=== PATIENT | male | born 2005 | race Caucasian/White ===

== ENCOUNTER 2024-05-04 09:51 | Emergency (ER) | payer BC, SELFPAY ==
--- NOTE | ~2024-05-04 | CT_ITS ---
EXAMINATION: CT SOFT TISSUE NECK WITH CONTRAST CLINICAL INFORMATION: Right-sided throat pain. Enlargement. COMPARISON: None available. TECHNIQUE: Following the intravenous administration of 60 mL of Omnipaque 350 intravenous contrast, helical imaging was performed in the axial plane with generation of coronal and sagittal reformatted images. No reported immediate complications. This CT examination was performed using dose optimization techniques as appropriate, variously including the following: *Automated exposure control *Adjustment of mA and/or kV according to patient size (this includes techniques or standardized protocols for targeted exams where dose is matched to indication/reason for exam; i.e. extremities or head) *Use of iterative reconstruction technique DLP: 867 mg centimeter FINDINGS: There is soft tissue fullness involving the right palatine tonsil with a lateral peripheral 2.4 cm hypodensity. There is edema pattern in the right side of the retropharynx. There is effacement of the right parapharyngeal compartment. There is narrowing of the oropharynx airway without obstruction. Prominent lingual tonsils protruding into the vallecula without seated secretions. No gross calcifications. Skull base, nasopharynx and larynx demonstrated no gross mass or fluid collections. Envelope Sealer spaces and carotid spaces demonstrated no gross masses or peripheral enhancing fluid collections. The salivary glands demonstrated no complications or abnormal enhancement. The vessels are patent. There are prominent lymph nodes in the submandibular and carotid compartments. The thyroid gland demonstrates normal enhancement and size without dominant nodules. No acute airspace disease in the included lungs. The mediastinal structures demonstrated no gross abnormality. Focal calcification in the anterior intervertebral disc C4-5. Tympanic cavities and mastoid cells are aerated. Small retention cysts versus polyp in the left maxillary sinus. There is an old traumatic deformity of the right lamina papyracea. 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 CT/CT soft tissue neck w IV con IMPRESSION: Phlegmon versus abscess, right peritonsillar with associated prominent/reactive lymph nodes. Edema pattern, right retropharynx. Electronically signed by: Ananda Pimentel MD 05/04/2024 02:14 PM [facility]
[2024-05-04 10:15] VITALS: BP 133/77; PULSE 78; RESP 18; TEMP 36.9; O2SAT 99; BMI 27.6
--- NOTE | 2024-05-04 10:18 | ED.GENADULT ---
HPI - General Adult General Chief complaint: General Medical Stated complaint: R side neck pain into ear Time Seen by Provider: 05/04/24 11:27 Source: patient Mode of arrival: ambulatory Limitations: no limitations History of Present Illness ED Provider: FEMI Kirby HPI narrative: 18-year-old male presents with sore throat, difficulty swallowing, changes in voice, feeling fatigued and unwell. This has been going on for the past 3-4 days. He was seen at urgent care he reports that they told him he had a head cold. Denies any recent sick contacts. Denies fevers, chills, chest pain, shortness of breath, nausea, vomiting, abdominal pain, headache, vision changes. Related Data Previous Rx's ?Medication ?Instructions ?Recorded clindamycin HCl 300 mg capsule 300 mg PO TID 10 days #30 caps 05/04/24 prednisone 50 mg tablet 50 mg PO DAILY 5 days #5 tabs 05/04/24 Allergies Allergy/AdvReac Type Severity Reaction Status Date / Time amoxicillin [AMOXICILLIN] Allergy Unknown UNKNOWN, Verified 05/04/24 10:22 rash Review of Systems Review of Systems: Yes all other systems are reviewed and are negative [facility] Past Medical History Attestation statement: The following information was validated with the patient. Source: old records reviewed and nursing notes reviewed Social History Social History Advance Directives: No Advance Directives Information Provided: Yes Physical Exam ED Vital Signs: Vital Signs - 24 hr 05/04/24 10:15 05/04/24 13:15 Temperature 98.5 F 98.4 F Pulse Rate 78 98 Respiratory Rate 18 18 Blood Pressure 133/77 151/76 H Pulse Oximetry 99 98 Oxygen Delivery Method Room Air Room Air BMI result Body Mass Index 27.6 vss Appearance: Alert.? Oriented X3.? No acute distress.? Head: Normocephalic, atraumatic, no step-offs or deformities Eyes: Pupils equal, round and reactive to light.? Neck: Normal inspection.? Neck supple.? CVS: Normal heart rate and rhythm.? Pulses normal.? Respiratory: No respiratory distress.? Breath sounds normal.? Abdomen: Soft and nontender.? Skin: Skin warm and dry.? Normal skin color.? Normal skin turgor.? Extremities: No lower extremity edema.? No calf ttp. 5/5 strength to bilateral upper and lower extremities Neuro: Oriented X 3.? No motor deficit.? No sensory deficit. CN 2-12 intact Course Course Course Narrative: Patient complains of sore throat, and significant tonsillar swelling pressing on the uvula over past 4 days Labs ordered This is rapid medical exam and triage pending full evaluation and disposition from ER provider Reevaluation(s) Reevaluation #1: CBC with elevated white blood cell count and neutrophil predominance. Concerning for possible infection. Chemistry with no acute findings eating intervention. Lactic acid is negative. CRP is elevated 5.39 concerning for acute process. Patient's COVID, Monospot and strep test negative. Patient received 10 mg of IV Decadron as well as clindamycin IV. I did look at the CT scan I suspect that there is a right-sided flag, versus peritonsillar abscess. Time: 14:00 Reevaluation #2: CT soft tissue neck with IV contrast with phlegmon versus abscess right peritonsillar with associated prominent give reactive lymph nodes edema pattern right retropharynx. Patient will be discharged with clindamycin 300 mg t.i.d. as well as prednisone 50 mg x 5 days. Will have him follow-up with ears Nose and Throat. Educated him to return with any new or worsening symptoms. I did educate him on potential for C diff with clindamycin. Him and father understand and verbalized understanding of plan. Educated patient on diagnosis and treatment plan, answered all question, patient verbalizes understanding. At this time patient will be discharged home, advised to return with new or worsening symptoms. Educated on worrisome signs and symptoms and when to return. At this time I feel comfortable discharge home. Time: 14:31 Medications Administered Discontinued Medications Generic Name Dose Route Start Last Admin Trade Name Freq PRN Reason Stop Dose Admin Dexamethasone Sodium Phosphate 10 mg 05/04/24 11:33 05/04/24 13:31 Dexamethasone Sod Phosphate 10 Mg/Ml Vial IVPUSH 05/04/24 11:34 10 mg ONCE ONE Administration Clindamycin Phosphate 600 mg in 50 mls @ 100 mls/hr 05/04/24 11:33 05/04/24 14:05 Cleocin IV 05/04/24 12:02 Infused ONCE ONE Infusion Iohexol 100 ml 05/04/24 13:32 05/04/24 13:33 Iohexol 350 Mg/Ml 100 Ml Infus..Btl IV 05/04/24 13:33 60 ml ONCE ONE Administration Medical Decision Making Medical Decision Making [facility] Narrative: 1136 18-year-old male presents with 3-4 days of sore throat, changes in voice, difficulty swallowing. Was seen at urgent Care and told he had a head cold. Physical exam revealing hypertrophy to the right tonsil without exudate. It appears as though the uvula is deviated to the left. Patient noted to have a muffled voice. Concerns for peritonsillar versus retropharyngeal abscess. No signs of airway compromise at this time. Unlikely epiglottitis. Will rule out strep throat as well as mononucleosis. Plan labs, imaging. Differential Diagnosis Differential Diagnoses: The differential diagnosis associated with the presentation includes (Concerns for peritonsillar versus retropharyngeal abscess. No signs of airway compromise at this time. Unlikely epiglottitis. Will rule out strep throat as well as mononucleosis.) Admission/Observation Consideration of admission/observation: Escalation of care including admission/observation considered Lab Data [facility] Lab Attestation statement: I reviewed the patient's lab results. 05/04/24 10:45 05/04/24 10:45 Labs: Lab Results 05/04/24 05/04/24 Range/Units 10:45 11:47 WBC 13.1 H (4.8-10.8) X10*3/uL RBC 5.37 (4.60-5.80) X10*6/uL Hgb 15.8 (14.0-18.0) g/dl Hct 46.0 (42.0-52.0) % MCV 85.7 (80.0-98.0) fL MCH 29.4 (27.0-33.0) pg MCHC 34.3 (31.0-36.0) g/dl RDW 12.6 (11.0-16.0) % Plt Count 308 (160-400) X10*3/uL MPV 9.1 L (9.4-12.4) fL Immature Gran % (Auto) 0.4 (0.0-0.4) % Neut % (Auto) 76.5 H (45-73) % Lymph % (Auto) 13.5 L (20-40) % Irwin % (Auto) 8.9 (2-11) % Eos % (Auto) 0.4 (0-4) % Baso % (Auto) 0.3 (0-2) % Lymph # (Auto) 1.8 (1.2-4.9) X10*3/uL Irwin # (Auto) 1.2 (0.1-1.2) X10*3/uL Eos # (Auto) 0.1 (0.0-0.4) X10*3/uL Baso # (Auto) 0.0 (0.0-0.2) X10*3/uL Abs Immat Gran (auto) 0.05 H (0.00-0.03) X10*3/uL Absolute Neuts (auto) 10.0 H (2.0-8.3) x10*3/uL Absolute Nucleated RBC 0.000 (0.0-0.012) X10*3/uL Nucleated RBC % (auto) 0.0 (0.0-0.2) /100WBC ESR 2 (0-15) MM/HR Sodium 139 (135-145) mmol/L Potassium 4.2 (3.3-5.1) mmol/L Chloride 105 (96-108) mmol/L Carbon Dioxide 28 (22-29) mmol/L Anion Gap 10 L (12-20) BUN 11 (9-16) mg/dL Creatinine 0.98 (0.5-1.4) mg/dL Estim Creat Clear Calc 140.9 Estimated GFR > 60 Random Glucose 89 (60-115) mg/dL Lactic Acid 0.8 (0.5-2.0) mmol/L Calcium 10.1 (8.4-10.2) mg/dL C-Reactive Protein 5.39 H (< or = 0.50) mg/dL COVID-19 (TUSHAR) Negative (Negative) COVID-19 Clin Com See Note Monoscreen Negative (Negative) S. pyogenes GrpA SAMEERA Negative (Negative) Independent Interpretation I performed an independent interpretation of an: CT Scan Radiology Impression Discussion of test interpretation with radiology: I have reviewed the radiologist's reading. Prescription Management I considered prescription management with: Antibiotic Critical Care Time Critical Care Time Critical Care Time: No Discharge Plan Discharge Clinical Impression: Abscess, peritonsillar Patient Disposition: Home, Self-Care Instructions: Peritonsillar Abscess (DC), Abscess Incision and Drainage (DC) Additional Instructions: Take your medications as prescribed. If you were prescribed antibiotics today, it is important that you take your medication to their entirety, do not skip any doses, do not finish them early. Follow-up with your primary care provider this week. Return to the emergency department with new or worsening symptoms. Such as fevers, chills, chest pain, shortness of breath, nausea, vomiting, dizziness, headache, vision changes, lethargy In case of emergency call 911 FINDINGS: There is soft tissue fullness involving the right palatine tonsil with a lateral peripheral 2.4 cm hypodensity. There is edema pattern in the right side of the retropharynx. There is effacement of the right parapharyngeal compartment. There is narrowing of the oropharynx airway without obstruction. Prominent lingual tonsils protruding into the vallecula without seated secretions. No gross calcifications. Skull base, nasopharynx and larynx demonstrated no gross mass or fluid collections. Freight Car [employer] spaces and carotid spaces demonstrated no gross masses or peripheral enhancing fluid collections. The salivary glands demonstrated no complications or abnormal enhancement. The vessels are patent. There are prominent lymph nodes in the submandibular and carotid compartments. The thyroid gland demonstrates normal enhancement and size without dominant nodules. No acute airspace disease in the included lungs. The mediastinal structures demonstrated no gross abnormality. Focal calcification in the anterior intervertebral disc C4-5. Tympanic cavities and mastoid cells are aerated. Small retention cysts versus polyp in the left maxillary sinus. There is an old traumatic deformity of the right lamina papyracea. 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 CT/CT soft tissue neck w IV con IMPRESSION: Phlegmon versus abscess, right peritonsillar with associated prominent/reactive lymph nodes. Edema pattern, right retropharynx. Prescriptions: New clindamycin HCl 300 mg capsule 300 mg PO TID 10 Days Qty: 30 0RF prednisone 50 mg tablet 50 mg PO DAILY 5 Days Qty: 5 0RF Referrals: Adrien Rios [Physician] - 1 day Physician,None [Primary Care Provider] - 2 days Stand Alone Forms: Work/School Release Print Language: Surinamese
[2024-05-04 10:53] LABS: MANUAL DIFF FLAG NO
[2024-05-04 10:55] LABS: Basophils Percent Auto 0.3 % (0-2); Eosinophils Absolute Auto 0.1 X10*3/uL (0.0-0.4); Eosinophils Percent Auto 0.4 % (0-4); Hemoglobin 15.8 g/dl (14.0-18.0); Imm Gran Abs Auto 0.05 X10*3/uL (0.00-0.03); Imm Gran Pct Auto 0.4 % (0.0-0.4); Lymphocytes Absolute Auto 1.8 X10*3/uL (1.2-4.9); Lymphocytes Percent Auto 13.5 % (20-40); Mean Corpuscular HGB Conc 34.3 g/dl (31.0-36.0); Mean Corpuscular Hemoglobin 29.4 pg (27.0-33.0); Mean Corpuscular Volume 85.7 fL (80.0-98.0); Mean Platelet Volume 9.1 fL (9.4-12.4); Monocytes Absolute Auto 1.2 X10*3/uL (0.1-1.2); Monocytes Percent Auto 8.9 % (2-11); Neutrophils Percent Auto 76.5 % (45-73); Platelet Count 308 X10*3/uL (160-400); Red Blood Count 5.37 X10*6/uL (4.60-5.80); Red Cell Distribution Width 12.6 % (11.0-16.0); White Blood Count 13.1 X10*3/uL (4.8-10.8)
[2024-05-04 11:05] LABS: IDNOW Serial# 58CA691E; Strep A Nucleic Acid Negative (Negative)
[2024-05-04 11:09] LABS: COVID-19 Test Negative (Negative); IDNOW Serial# 16C4AD1C
[2024-05-04 11:11] LABS: Anion Gap 10 (12-20); Blood Urea Nitrogen 11 mg/dL (9-16); Calcium 10.1 mg/dL (8.4-10.2); Carbon Dioxide 28 mmol/L (22-29); Chloride 105 mmol/L (96-108); Creatinine Clr Calc Pharmacy 140.9; Estimated Glomerular Filt Rate > 60; Glucose Random 89 mg/dL (60-115); Potassium 4.2 mmol/L (3.3-5.1); Sodium 139 mmol/L (135-145)
--- OUTSIDE RECORDS SUMMARY | 2024-05-04 11:24 | XMS_ITS | Encounter Summary ---
Author Organization [facility] Address [address] [place] [id number] Phone Care Team Providers Care Data Entry Processor Name Role Phone Brant Pena MD Primary Care Provider Encounter Details Date Type Department Care Team (Late st Contact Info) Description 03/05/2013 Conversion Encounter [facility] [place] [address] [place] [address] [place] [id number] Social History Tobacco Use Types Packs/Day Years Used Date Smoking Tobacco: Never Assessed Sex and Gender Information Value Date Recorded Sex Assigned at Not on file Legal Sex Male 6:26 PM EDT Gender Identity Male 01/26/2021 4:16 PM EDT Sexual Orientation Straight 06/18/2019 8: 18 AM EDT documented as of this encounter Plan of Treatment Not on file documented as of this encounter Visit Diagnoses Not on filedocumented in this encounter Care Teams Data Entry Processor Relationship Specialty Start Date End Date Brant Pena MD [address] [place] [address] [place] [address] PCP - General 08/10/17 documented as of this encounter
--- OUTSIDE RECORDS SUMMARY | 2024-05-04 11:24 | XMS_ITS | Clinical Summary ---
Author Organization [facility] Address [address] [place] [id number] Phone Care Team Providers Care Leadlighter Name Role Phone Brant Pena MD Primary Care Provider [phone] Allergies Active Allergy Reactions Criticality Noted Date Comments Amoxicillin Medications clindamycin (Cleocin-T) 1 % gelIndications: Other acne Apply a thin layer to acne prone areas at bedtime and again in the morning everyday to control acne. 30 g 5 06/25/2021 Active Active Problems Problem Noted Date Diagnosed Date Counseling for transition fr pediatric to adult care provider 07/06/2023 Assessment & Plan (07/06/2023 10:26 AM EDT): Time to transition to an adult provider. Please give patient copy of their physical form(if ready), adult MD list and record release form as this is their last [facility]. Have them call within 1 month for appointment in a year as adult providers fill up appointments quickly. Family history of breast cancer in male 06/26/19 22 Overview (06/25/2021): Father about 2015, both sons will need genetic testing in early 20's. Mom will get us the info and make sure this gets done. Assessment & Plan (06/25/2021 9:19 AM EDT): Father about 2015, both sons will need genetic testing in early 20's. Mom will get us the info and make sure this gets done. Self exam monthly on breast tissue and check under arms to see if any enlarged lymph nodes. Discussed Resolved Problems Problem Noted Date Diagnosed Date Resolved Date Chronic bilateral low back p ain without sciatica 12/18/2020 06/25/2021 Overview (12/18/2020): Suspect chronic muscle strain- trial of PT Assessment & Plan (12/18/2020 10:27 AM EDT): Suspect chronic muscle strain. Recommendations: ?? Avoid activities which aggravate pain ?? Will refer to physical therapy ?? May use Ibuprofen or Aleve as needed for pain. Take with food ?? May also try ice or heating pad for pain ?? Call if any worsening pain, night wakening, radiation of pain down legs or numbness/tingling in legs or failure to improve after 4-6 weeks of physical therapy Encounters Date Type Department Care Team Description 05/04/2024 9:51 AM EST - Present Hospital Encounter [facility] - Patient Ping from Last 3 Months Immunizations Name Administration Dates Next Due COVID-19 Pfizer, monovalent, 12+ years DTaP 5 10/31/2008, 6,03/04/2005,12/30,2004 HPV Vaccine 9 Valent 06/18/2019,06/12/2018 Hep A, ped/adol 02/08/2012,11/05/2010 Hep B, ped/adol 03/04/2005,2004,2004 Hib (PRP-T) 12/16/2005,2004,2004 IPV 10/31/2008, 5,2004,11/02 Influenza, injectable, quadrivalent 03/09/2017,0 05/27/2015,05/16/2014 Influenza, injectable, quadr ivalent, preservative free 07/01/2022,01/26/2021,12/20/2019,02/22,03/16/2018,01/13/2016 Influenza, injectable, triva lent, preservative free 01/25/2013,02/10/2012,03/04/2005 MMR 10/31/2008,08/31/2005 Meningococcal B Trumenba 07/06/2023,07/01/2022 Meningococcal Conj (Menactra) MCV4P 02/11/2021,0 06/01/2016 Pneumococcal Conjugate 08/31/2005,2004,2004,11/02 Tdap 06/01/2016 Varicella 10/31/2008,08/31/2005 Family History Medical History Relation Name Comments Allergic rhinitis Father Anxiety disorder Father Breast cancer Father Depression Father Food allergies Father Hyperlipidemia Father Hypertension Father Hearing loss Maternal Grandfather Hyperlipidemia Maternal Grandfather Hypertension Maternal Grandfather Diabetes Maternal Grandmother Hyperlipidemia Maternal Grandmother Hypertension Maternal Grandmother Obesity Maternal Grandmother Hearing loss Mother Thyroid disease Mother Diabetes Mother's Brother Substance abuse Mother's Brother Breast cancer Mother's Sister Eczema Mother's Sister Obesity Mother's Sister Substance abuse Mother's Sister Thyroid disease Mother's Sister Allergic rhinitis Paternal Grandfather Anxiety disorder Paternal Grandfather Depression Paternal Grandfather Food allergies Paternal Grandfather Hypertension Paternal Grandfather Substance abuse Paternal Grandfather Diabetes Paternal Grandmother Hyperlipidemia Paternal Grandmother Obesity Paternal Grandmother Relation Name Status Comments Father Maternal Grandfather Maternal Grandmother Mother Mother's Brother Mother's Sister Paternal Grandfather Paternal Grandmother Social History Tobacco Use Types Packs/Day Years Used Date Smoking Tobacco: Never Smokeless Tobacco: Never Alcohol Use Standard Drinks/Week Comments Never 0 (1 standard drink = 0.6 oz pur e alcohol) Hunger/Food Answer Date Recorded In the last 12 months, did y ou or your family ever eat less than you felt you should because there wasn't enough money for food? No 07/05/2023 Stable Housing Answer Date Recorded Are you worried that in the next 2 months you may not have stable housing? No 07/05/2023 Transportation Concerns Answer Date Rec orded In the last 12 months, have you or your family ever had to go without healthcare because you didn't have a way to get there? No 07/05/2023 Hazards in Home Answer Date Recorded Think about the place you li ve. Do you have problems with any of the following? Pests (mice or roaches), mold, no/not working smoke detectors, water leaks, no window guards. No 2023 Financing Utilities Answer Date Recorde d In the last 12 months, has t he electric, gas, oil, or water company threatened to shut off your services in your home? No 07/05/2023 Safety at Home Answer Date Recorded Are you or your family worried about feeling saf e in your home? No 07/05/2023 Outside Support Answer Date Recorded Do you feel that you need mo re support from other people or programs to help you care for yourself or your family? No 07/05/2023 Understanding Health Concerns Answer Da te Recorded Do you need help understandi ng your or your child's healthcare needs (diagnosis, medications, plan, etc.)? No 07/05/2023 Financing Health Concerns Answer Date R ecorded In the last 12 months, was t here a time when your child needed to see a doctor or get medications or supplies but could not because of cost? No 07/05/2023 Missing School or Work Answer Date Enrico rded Did you or your child miss s chool or work because of a health problem that could have been avoided? No 07/05/2023 Sex and Gender Information Value Date Recorded Sex Assigned at Not on file Legal Sex Male 6:26 PM EDT Gender Identity Male 01/26/2021 4:16 PM EDT Sexual Orientation Straight 06/18/2019 8: 18 AM EDT Last Filed Vital Signs Vital Sign Reading Time Taken Comments Blood Pressure 114/62 07/06/2023 9:41 AM EDT Pulse 73 07/06/2023 9:41 AM EDT Temperature 36.4 ??C (97.5 ??F) 07/06/2023 9:41 AM ED T Respiratory Rate 18 07/06/2023 9:41 AM EDT Oxygen Saturation 99% 07/06/2023 9:41 AM EDT Inhaled Oxygen Concentration - - Weight 85.4 kg (188 lb 3.2 oz) 07/06/2023 9:41 A M EDT Height 187 cm (6' 1.62 ) 07/06/2023 9:41 AM EDT Body Mass Index 24.41 07/06/2023 9:41 AM EDT Body Mass Index Percentile 72.70% 07/06/2023 9:4 1 AM EDT Growth Chart: CDC (Boys, 2-2 0 Years) Plan of Treatment Health Maintenance Due Date Last Done Comments COVID-19 Vaccine (4-2 5 season) 2023 12/02/2020, 11/11/2020 DTaP,Tdap,and Td Vaccines (7 - Td or Tdap) 06/01/2026 06/01/2016, 10/31/2008, 12/16/2005, Additional history exists Hepatitis B Vaccines Completed 03/04/2005, 2004, 2004 Pneumococcal Vaccine Completed 08/31/2005, 03/04/2005, 2004, Additional history exists HIB Vaccines Completed 12/16/2005, 12/04, 2004 IPV Vaccines Completed 10/31/2008, 04/2004, 2004, Additional history exists MMR Vaccines Completed 10/31/2008, 08/31/2005 Varicella Vaccines Completed 10/31/2008, 08/31/2005 Hepatitis A Vaccines Completed 02/08/2012, 11/06/19 11 HPV Vaccines Completed 06/18/2019, 06/12/2018 Meningococcal Vaccine Completed 02/11/2021, 017 Men B Vaccine Completed 07/06/2023, 07/01/2022 Influenza Vaccines Completed 01/02/2024, 0 07/01/2022, 01/26/2021, Additional history exists Insurance [facility] [place] [id number] [facility] Care Teams Leadlighter Relationship Specialty Start Date End Date Brant Pena MD [address] [place] [address] PCP - General 08/10/17
--- OUTSIDE RECORDS SUMMARY | 2024-05-04 11:24 | XMS_ITS | Encounter Summary ---
Author Organization [facility] Address [phone] [place] [address] Care Team Providers Care Adjunct Professor Of [employer] History Name Role Phone Unavailable Primary Care Provider Unavailabl e Encounter Details Date Type Department Care Team (Latest Contact Info) Description 11/05/2019 Transcribe Orders Virtual Department [address] [place] [address] Brant Pena MD [address] [place] [address] Exposure to SARS-associated coronavirus (Primary Dx) Social History Tobacco Use Types Packs/Day Years Used Date Smoking Tobacco: Never Assessed Sex and Gender Information Value Date Recorded Sex Assigned at Not on file Gender Identity Not on file Sexual Orientation Not on file documented as of this encounter Plan of Treatment Not on file documented as of this encounter Visit Diagnoses Diagnosis Exposure to SARS-associated coronavirus- Primary documented in this encounter Additional Health Concerns Infection Onset Date Last Indicated Resolved Time CoV-Exposed Comment:Recent close contact 11/05/2019 11/05/2019 11/19/2019 1:23 AM EDT documented as of this encounter Additional Source Comments The information contained in this document represents components of the legal health record. It is not the complete legal health record.[facility]
--- OUTSIDE RECORDS SUMMARY | 2024-05-04 11:24 | XMS_ITS | Data Portability ---
Author Organization [place] - [facility], [address] Address [address] [place] [address] Assessment No assessment recorded. Plan of Treatment Reminders Order Date Submit Date Provider Last Modified By Organization Details Last Modified Time Details Appointments None recorded. Lab None recorded. Referral None recorded. Procedures None recorded. Surgeries None recorded. Imaging None recorded. Medication Orders mometasone 50 mcg/actuati on nasal spray 2024 025 [facility]/Pharmacy #[id number], [address] [place], [address], 14:46:44 Patient TargetsNo targets recorded. Patient InstructionsNo instructions recorded. Reason for Referral None Reported. Problems No Known Problems Medical Equipment None Reported. Allergies Allergen ID Allergen Name Allergen Category Reaction Reaction Severity Criticality Documentation Date Start Date Code Code System Note Provider Name and Address Organization Details Recorded Time [id number] amoxicill in medicatio n Not available Not available Not available 05/02/2024 723 RxNorm Lexie [place] null, [place] - [facility] 14:40:49 Medications Name Sig Start Date Stop Date Status Note LastModified by Organization Details LastModified Time mometasone 50 mcg/actuatio n nasal spray [place] 2 sprays every day by intranasal route for 30 days. 2024 active Not Available Not Available Not Avai lable Vitals Date Recorded Body height Provider Name an d Address Organization Details Last Updated DateTime 05/02/2024 187.96 cm Lexie [place] - [facility] 0 05/02/2024 14:41:44 Date Recorded Body mass index (BMI) Body mass index (BMI) Percentile per age and sex Provider Name and Address Organization Details Last Updated DateTime 05/02/2024 25.7 kg/m2 79 % Lexie [place] - [facility] 05/02/2024 14:41:49 Date Recorded Body weight Provider Name an d Address Organization Details Last Updated DateTime 05/02/2024 22906.47 g Lexie [place] - [facility] 0 05/02/2024 14:41:50 Date Recorded Pain severity - 0-10 verbal numeric rating [Score] - Reported Provider Name and Address Organization Details Last Updated DateTime 05/02/2024 6 Lexie [place] - [facility] 0 05/02/2024 14:42:27 Date Recorded Body temperature Provider Name a nd Address Organization Details Last Updated DateTime 05/02/2024 98.8 [degF] Lexie [place] - [facility] 05/02/2024 14:42:30 Date Recorded Respiratory rate Provider Name a nd Address Organization Details Last Updated DateTime 05/02/2024 16 /min Lexie [place] - [facility] 0 05/02/2024 14:42:32 Date Recorded Oxygen saturation Oxygen saturation in Arterial blood by Pulse oximetry Provider Name and Address Organization Details Last Updated DateTime 05/02/2024 98 % 98 % Lexie [place] - [facility] 05/02/2024 14:42:41 Date Recorded Heart rate Provider Name an d Address Organization Details Last Updated DateTime 05/02/2024 68 /min Lexie [place] - [facility] 0 05/02/2024 14:42:43 Date Recorded Systolic blood pressure Diastolic blood pressure Provider Name and Address Organization Details Last Updated DateTime 05/02/2024 130 mm[Hg] 81 mm[Hg] Lexie [place] - [facility] 05/02/2024 14:42:38 Social History Question Answer Notes LastModified by Organizat ion Details LastModified Time Tobacco Smoking Status Never Smoker Lexie [place] null, [place] - [facility] 05/02/2024 14:41:28 What Is Your Level Of Alcohol Consumption? None Information not available 05/02/2024 Are You Currently Employed? Yes Information not available 05/02/2024 Have You Had A Flu Shot This Season? Yes Information not available 05/02/2024 Do You Use Any Illicit Or Recreational Drugs? No Information not available 05/02/2024 Have You Recently Traveled Abroad? No Information not available 05/02/2024 Are You Currently In School? No Information not available 05/02/2024 Do You Or Have You Ever Used Any Other Forms Of Tobacco Or Nicotine? No Information not available 05/02/2024 Sex: Unknown Functional Status None recorded. Mental Status None recorded. Family History Relationship Description Onset Age of this Age Resolved Age Notes LastModified by Organization Details LastModified Time Father No current problems or disability Not available 05/02 14:41:12 Mother No current problems or disability Not available 05/02 14:41:12 Medical History No medical history recorded. Past Encounters Encounter ID Performer Location Encounter Start Date Encounter Closed Date Diagnosis/Indication Diagnosis SNOMED-CT Code Diagnosis ICD10 Code Diagnosis Note [id number] [facility] Holley [address] [place] [address] 05/02/2024 14:18:55 05/02/2024 14:47:39 Acute serous otitis media of bilateral ears [id number] 631397 H65.03 You have fluid in your middle ears, this is likely from sinus congestion and/or eustachian tube dysfunctio n.Use nasal spray like flonase or nasonex to help clear things out. - Decongesta nts if tolerated. - Recommend recheck if fever develops or no improvemen t in 5-7 days.- I recommend having your ear rechecked in in 2 weeks with your primary provider to verify issues have-.Use a cool mist humidifier in the room that you sleep to add moisture to the air, which should soothe the airways and help loosen any mucus that may be present.-C all 911 or proceed to nearest Emergency Department if you develop shortness of breath, chest pain, severe headache or other symptoms that concern you. Health Concerns Section Related Observation LastModified by Organization Detai ls LastModified Time None Recorded Concern Status LastModified by Organization Details LastModified Time None Recorded Advance Directives Directive None Recorded Payers Encounter Date Sequence Insurance Name Policy Number Policy Underwood Covered Member ID Underwood Member ID Guarantor Name 05/02/2024 1 [facility] [id number] Emyorestes Case Gianfranco [id number] John Medel Notes Date Note Type Note Provider Name and Address Organization Details Recorded Time 05/02/2024 text/html 18 y/o male with R ear pain since yesterday, better with ibuprofen today FEMI Holley [address] [place], [place] [address], [address], [place] - [facility] 05/02/2024 14:50:25
--- OUTSIDE RECORDS SUMMARY | 2024-05-04 11:24 | XMS_ITS | Encounter Summary ---
Author Organization [facility] Address [address] [place] [address] Phone Care Team Providers Care Mail Reader Name Role Phone Brant Pena MD Primary Care Provider [phone] Reason for Visit * Reason Comments ED Admission Encounter Details Date Type Department Care Team (Late st Contact Info) Description 05/04/2024 9:51 AM EST - Present Hospital Encounter [facility] - Patient Ping Social History Tobacco Use Types Packs/Day Years [...] on filedocumented in this encounter Care Teams Mail Reader Relationship Specialty Start Date End Date Brant Pena MD [address] [facility] [place] [address] PCP - General 08/10/17 documented as of this encounter
--- OUTSIDE RECORDS SUMMARY | 2024-05-04 11:24 | XMS_ITS | Clinical Summary ---
Author Organization [facility] Address [phone] [place] [address] Care Team Providers Care Supervisor Compounding And Finishing Name Role Phone Unavailable Primary Care Provider Unavailabl e Social History Tobacco Use Types Packs/Day Years Used Date Smoking Tobacco: Never Assessed Sex and Gender Information Value Date Recorded Sex Assigned at Not on file Gender Identity Not on file Sexual Orientation Not on file Plan of Treatment Not on file Medical Devices Not on file Additional Source Comments The information contained in this document represents components of the legal health record. It is not the complete legal health record.[facility]
--- OUTSIDE RECORDS SUMMARY | 2024-05-04 11:24 | XMS_ITS | Continuity of Care Document ---
Author Organization [place] - [facility] [address] Address [address] [place] [address] Assessment No assessment recorded. Plan of Treatment Reminders Order Date Submit Date Provider Last Modified By Organization Details Last Modified Time Details Appointments None recorded. Lab None recorded. Referral None recorded. Procedures None recorded. Surgeries None recorded. Imaging None recorded. Medication Orders mometasone 50 mcg/actuati on nasal spray 2024 025 [facility]/Pharmacy #1230, [address] [place], [address], 14:46:44 Patient TargetsNo targets recorded. Patient InstructionsNo instructions recorded. Reason for Referral None Reported. Problems No Known Problems Medical Equipment None Reported. Allergies Allergen ID Allergen Name Allergen Category Reaction Reaction Severity Criticality Documentation Date Start Date Code Code System Note Provider Name and Address Organization Details Recorded Time [id number] amoxicill in medicatio n Not available Not available Not available 05/02/2024 723 RxNorm Lexie [place] null, [place] - [facility] 14:40:49 Medications Name Sig Start Date Stop Date Status Note LastModified by Organization Details LastModified Time mometasone 50 mcg/actuatio n nasal spray [place] 2 sprays every day by intranasal route for 30 days. 2024 active Not Available Not Available Not Avai lable Vitals Date Recorded Body height Provider Name an d Address Organization Details Last Updated DateTime 05/02/2024 187.96 cm Lexie [place] - [facility] 0 05/02/2024 14:41:44 Date Recorded Body mass index (BMI) Body mass index (BMI) Percentile per age and sex Provider Name and Address Organization Details Last Updated DateTime 05/02/2024 25.7 kg/m2 79 % Lexie [place] - [facility] 05/02/2024 14:41:49 Date Recorded Body weight Provider Name an d Address Organization Details Last Updated DateTime 05/02/2024 95952.47 g Lexie [place] - [facility] 0 05/02/2024 14:41:50 Date Recorded Pain severity - 0-10 verbal numeric rating [Score] - Reported Provider Name and Address Organization Details Last Updated DateTime 05/02/2024 6 Lexie [place] - [facility] 0 05/02/2024 14:42:27 Date Recorded Body temperature Provider Name a nd Address Organization Details Last Updated DateTime 05/02/2024 98.8 [degF] Lexie [place] PA - [facility] 05/02/2024 14:42:30 Date Recorded Respiratory rate Provider Name a nd Address Organization Details Last Updated DateTime 05/02/2024 16 /min Lexie [place] - [facility] 0 05/02/2024 14:42:32 Date Recorded Oxygen saturation Oxygen saturation in Arterial blood by Pulse oximetry Provider Name and Address Organization Details Last Updated DateTime 05/02/2024 98 % 98 % Lexie [place] - [facility] 05/02/2024 14:42:41 Date Recorded Heart rate Provider Name an d Address Organization Details Last Updated DateTime 05/02/2024 68 /min Lexie [place] - [facility] 0 05/02/2024 14:42:43 Date Recorded Systolic blood pressure Diastolic blood pressure Provider Name and Address Organization Details Last Updated DateTime 05/02/2024 130 mm[Hg] 81 mm[Hg] Lexie [place] PA - [facility] 05/02/2024 14:42:38 Social History Question Answer Notes LastModified by Organizat ion Details LastModified Time Tobacco Smoking Status Never Smoker Lexie [place] null, [place] - [facility] 05/02/2024 14:41:28 [...] SNOMED-CT Code Diagnosis ICD10 Code Diagnosis Note [id number] F[facility]I Holley [address] [place] [address] 05/02/2024 14:18:55 05/02/2024 14:47:39 Acute serous otitis media of bilateral ears [id number] H65.03 You have fluid in your middle [...] by Organization Details LastModified Time None Recorded Payers Encounter Date Sequence Insurance Name Policy Number Policy Underwood Covered Member ID Underwood Member ID Guarantor Name 05/02/2024 1 [facility] [place] [id number] Emyorestes Case Gianfranco [id number] John Medel Notes Date Note Type Note Provider Name and Address Organization Details Recorded Time 05/02/2024 text/html 18 y/o male with R ear pain since yesterday, better with ibuprofen today FEMI Holley [address] [place], [place] [address], [address], [place] - [facility] 05/02/2024 14:50:25
[2024-05-04 12:03] LABS: C Reactive Protein 5.39 mg/dL (< or = 0.50)
[2024-05-04 12:20] LABS: Lactic Acid 0.8 mmol/L (0.5-2.0)
[2024-05-04 12:40] LABS: Erythrocyte Sedimentation Rate 2 MM/HR (0-15)
[2024-05-04 12:47] LABS: Monotest Negative (Negative)
[2024-05-04 13:15] VITALS: BP 151/76; PULSE 98; RESP 18; TEMP 36.9; O2SAT 98
[2024-05-04] MEDS: Clindamycin Phosphate/D5W 600 MG/50 ML PIGGYBACK 100 MG IV (13:31)
[2024-05-04] MEDS: dexAMETHasone sod phosphate 10 MG/ML VIAL IVPUSH (13:31)
--- NOTE | 2024-05-04 13:31 | PC.NURSE ---
delay in medication administration d/t mono screen not being back. labs now back - abx administered per provider order.
[2024-05-04] MEDS: iohexoL 350 MG/ML 100 ML INFUS..BTL IV (13:33)
[2024-05-04 14:49] VITALS: BP 151/76; PULSE 98; RESP 18; TEMP 36.9; O2SAT 98
== END 2024-05-04 14:53 | disposition home or self-care (01) ==
PROVIDERS: Physician Assistant; Physician Assistant Medical; Emergency Provider Emergency Medicine
DX: J36 Peritonsillar abscess (principal); M54.2 Cervicalgia; R13.10 Dysphagia, unspecified; Z11.52 Encounter for screening for COVID-19; Z79.899 Other long term (current) drug therapy
CPT/HCPCS: 36415; 70491; 80048; 83605; 85025; 85652; 86140; 86308; 87040; 87635; 87651; 96365; 96375; 99283; J0736; J1100; Q9967

== ENCOUNTER → 2024-05-04 11:33 | Outpatient (BNV) | payer BC, SELFPAY | PROVIDERS: Emergency Provider Emergency Medicine; Visit Provider Radiology Diagnostic Radiology | DX: J36 Peritonsillar abscess (principal) | CPT/HCPCS: 70491 ==

== ENCOUNTER → 2024-09-28 21:06 | Outpatient (BNV) | payer BC, SELFPAY | PROVIDERS: Emergency Provider Emergency Medicine; PCP Pediatrics Adolescent Medicine; Visit Provider Radiology Diagnostic Radiology | DX: M79.89 Other specified soft tissue disorders (principal) | CPT/HCPCS: 73600 ==

== ENCOUNTER 2024-09-28 21:46 | Emergency (ER) | payer BC, SELFPAY ==
--- NOTE | ~2024-09-28 | XR_ITS ---
CLINICAL HISTORY: rolled ankle, pain, swelling 3 view right ankle Comparison: None provided Findings: No acute fractures or dislocations. Soft tissue swelling over the lateral malleolus. No ankle effusion. No radiopaque foreign body. IMPRESSION: No acute fracture. Soft tissue swelling over the lateral malleolus. This document has been electronically signed by: Timmy Crain MD on 09/28/2024 22:39:55
[2024-09-28 21:49] VITALS: BP 100/67; PULSE 79; RESP 20; TEMP 37.3; O2SAT 100; BMI 25.0
--- NOTE | 2024-09-28 22:23 | ED.EXTPRO ---
HPI - Extremity Problem General Chief complaint: Extremity Problem Stated complaint: right ankle injury Time Seen by Provider: 09/28/24 22:21 Source: patient Mode of arrival: wheelchair Limitations: no limitations History of Present Illness ED Provider: Mayito KAHN HPI Narrative: The patient is an otherwise healthy 19-year-old male presenting to the ED for evaluation of right lateral ankle swelling which occurred after a rolling injury while playing pickle ball approximately 1 hour ago. The patient denies previous injury to the affected extremity. Patient reports pain with weight-bearing since the injury. Patient denies distal paresthesias or impaired range of motion. Patient has not taken any medication for his symptoms since the injury. Patient denies fall to the ground, head strike, or other acute somatic complaint. Related Data Previous Rx's ?Medication ?Instructions ?Recorded clindamycin HCl 300 mg capsule 300 mg PO TID 10 days #30 caps 05/04/24 prednisone 50 mg tablet 50 mg PO DAILY 5 days #5 tabs 05/04/24 acetaminophen 500 mg capsule 1,000 mg (2 x 500 mg) PO .q8 PRN 09/28/24 fever or pain #30 caps ibuprofen 600 mg tablet 600 mg PO Q8H PRN fever or pain 09/28/24 #30 tabs Allergies Allergy/AdvReac Type Severity Reaction Status Date / Time amoxicillin (AMOXICILLIN) Allergy Unknown UNKNOWN, Verified 09/28/24 21:50 rash Review of Systems Review of Systems: Yes all other systems are reviewed and are negative PMFSH Social History Social History Advance Directives: No Advance Directives Information Provided: Yes Physical Exam Vital Signs: Vital Signs: Last Vital Signs Temp 99.1 F 09/28/24 21:49 Pulse 79 09/28/24 21:49 Resp 20 09/28/24 21:49 BP 100/67 09/28/24 21:49 Pulse Ox 100 09/28/24 21:49 O2 Del Method Room Air 09/28/24 21:49 BMI result Body Mass Index 25.0 CONSTITUTIONAL: The patient appears non-toxic, well nourished and in no acute distress. Vital signs as documented. HEAD: Atraumatic, normocephalic. EYES: EOMs grossly intact, pupils equal, conjunctiva clear, no exudate. ENT: Nares patent, no discharge. Airway patent, no audible stridor, visible mucosa is pink and moist without noted lesions. NECK: trachea is midline, no obvious masses or gross abnormalities. CHEST: Symmetric movement, normal appearance. LUNGS: Non-labored work of breathing. CARDIAC: No evidence of hypoperfusion. ABDOMEN: Nondistended, no obvious injury. : Deferred. EXTREMITIES: There is swelling noted of the lateral malleolus of the right ankle, with overlying tenderness, no associated crepitus, distal CSM is intact, 2+ DP/PT pulses noted. Moves all other extremities spontaneously without reported pain. No obvious injury or deformity noted. NEURO: Alert and oriented x3, CN II-XII appear grossly intact. Cerebellar Functioning grossly intact. Speech clear and appropriate. SKIN: Warm, dry, color appropriate. No rashes or lesions noted. Medical Decision Making Medical Decision Making [facility] Narrative: 10:28 PM 09/28/2024: Patient is a otherwise healthy 19-year-old male presenting to the ED for evaluation of lateral right ankle swelling after a rolling injury while playing pickleball. Patient's exam reveals distal CSM intact, lateral malleolus swelling without associated crepitus, 2+ DP/PT pulses. Patient's x-ray has been reviewed and per this provider's interpretation shows no acute fracture, ankle mortise is intact. Patient will be placed in a ankle stirrup splint, provided crutches for weight-bearing as tolerated, provided ibuprofen and Tylenol, and discharged with anti-inflammatories, an outpatient PCP follow-up. Differential Diagnosis Ankle fracture, ankle sprain, contusion, ligamentous injury Admission/Observation Consideration of admission/observation: Escalation of care including admission/observation considered Independent Interpretation I performed an independent interpretation of an: Plain X-Ray (X-ray shows no acute fracture, ankle mortise is intact. Significant lateral malleolar soft tissue swelling.) Radiology Impression Discussion of test interpretation with radiology: I have reviewed the radiologist's reading. Radiologist Impression: CLINICAL HISTORY: rolled ankle, pain, swelling 3 view right ankle Comparison: None provided Findings: No acute fractures or dislocations. Soft tissue swelling over the lateral malleolus. No ankle effusion. No radiopaque foreign body. IMPRESSION: No acute fracture. Soft tissue swelling over the lateral malleolus. This document has been electronically signed by: Timmy Crain MD on 09/28/2024 22:39:55 Prescription Management I considered prescription management with: Pain Medication Discharge Plan Discharge Clinical Impression: Inversion sprain of right ankle Qualifiers: Encounter type: initial encounter Qualified Code(s): S93.401A - Sprain of unspecified ligament of right ankle, initial encounter Patient Disposition: Home, Self-Care Instructions: Ankle Sprain (ED), Crutch Instructions (ED), Ankle Stirrup Splint (ED), Ice Pack Application (ED) Additional Instructions: Thank you for choosing [facility]'s Emergency Department for your care today. Your x-ray today shows that your inversion/rolling injury resulted in a high-grade sprain of your right ankle. Thankfully your x-ray shows no evidence of an acute fracture. At this time there is no indication for admission to the hospital or continued ED observation, and it is safe to discharge you home. We have placed you in a ankle stirrup splint and provided crutches. Please use the splint and crutches to bear weight only as tolerated on the affected ankle. You may remove the splint to shower, however please use extra care while walking/standing without the splint to avoid recurrent injury or fall. You may take alternating (staggered) doses of ibuprofen 600mg and Tylenol 1000mg every 4 hours as needed for any additional pain. Please rest the injured area, and apply ice for 20 minutes every hour. Please follow up with your primary care physician for re-evaluation, additional management of your symptoms, and continued preventative care. If you do not have a primary care physician, please call the [facility] at [phone] to establish a new primary care physician. While waiting to establish your new primary care physician, you can call our Walk[facility]in [facility] at [phone] for non-emergency needs. Please return to the emergency department if you develop a severe or sudden change in your symptoms, a fever over 100.4 that does not improve with Tylenol or Ibuprofen, recurrent vomiting, or any other new or worsening symptoms or concerns. Prescriptions: New ibuprofen 600 mg tablet 600 mg PO Q8H PRN (Reason: fever or pain) Qty: 30 0RF acetaminophen 500 mg capsule 1,000 mg PO .q8 PRN (Reason: fever or pain) Qty: 30 0RF No Action clindamycin HCl 300 mg capsule 300 mg PO TID 10 Days Qty: 30 0RF prednisone 50 mg tablet 50 mg PO DAILY 5 Days Qty: 5 0RF Referrals: Brant Pena MD [Primary Care Provider, Pediatrics] Clinical Impression: Inversion sprain of right ankle Print Language: Sinhala
[2024-09-28 23:05] VITALS: BP 120/65; PULSE 66; RESP 20; TEMP 36.9; O2SAT 98
[2024-09-28] MEDS: Ibuprofen 600 MG TABLET PO (23:31)
[2024-09-28] MEDS: Acetaminophen 325 MG TABLET 975 MG PO (23:32)
[2024-09-29 00:59] VITALS: BP 120/65; PULSE 66; RESP 20; TEMP 36.9; O2SAT 98
== END 2024-09-29 01:02 | disposition home or self-care (01) ==
PROVIDERS: Emergency Provider Emergency Medicine; PCP Pediatrics Adolescent Medicine
DX: S93.401A Sprain of unspecified ligament of right ankle, initial encounter (principal); X50.1XXA Overexertion from prolonged static or awkward postures, initial encounter; Y93.73 Activity, racquet and hand sports; Y92.312 Tennis court as the place of occurrence of the external cause; Y99.8 Other external cause status
CPT/HCPCS: 73600; 99283

== ENCOUNTER 2024-11-27 15:25 | Outpatient (AMB) | payer BC, SELFPAY ==
--- NOTE | 2024-11-27 15:30 | MHC.PC.OV ---
Vital Signs 11/27/24 15:36 Height 6 ft 3 in Weight 179 lb BMI 22.4 BP 108/62 Blood Pressure Location Lt brachial Position Sitting Respiration 14 Pulse 70 Pulse Source Pulse Oximeter Temp 98.7 F Temp Source Oral Pulse Oximetry (%) 98 Oxygen Delivery Method Room Air Intake Visit Reasons: est care Intake Note: New patient visit Surveillance Camera Technician Required: No Allergies amoxicillin (AMOXICILLIN) Allergy (Unknown, Verified 11/27/24 15:40) UNKNOWN, rash Tobacco use date assessed: 11/27/24 Dental Screening Dental Screen Date: 11/27/24 Did you have a dental visit in the last 12 months?: Yes Did you have a dental problem in the last 6 months where you did not have access to dental care?: No Was dental information given to patient?: Patient has dentist HPI HPI Comments History of Present Illness Details 19 year old male with no chronic medical conditions presenting to [facility]. Transfer from pediatrics Right ankle pain for the past 2 months. He rolled the ankle while playing pickleball with subsequent pain and swelling in and around the right lateral malleolus. He was seen in the emergency room at the time. Xray without fracture showed soft tissue swelling. He has used an ankle support brace. He continues to have pain in that area with prolonged weight bearing and inversion/eversion at the ankle. His father was diagnosed with male breast cancer at the age of 50. Dad is BRCA positive and continues to be monitored for increased risk of breast, prostate and pancreatic cancer Dental UTD ROS CONSTITUTIONAL: Denies weight loss, fever and chills. HEENT: Denies changes in vision and hearing. RESPIRATORY: Denies SOB and cough. CV: Denies palpitations and CP GI: Denies abdominal pain, nausea, vomiting and diarrhea. : Denies dysuria and urinary frequency. MSK: Denies new myalgia and joint pain. SKIN: Denies rash and pruritus. NEUROLOGICAL: Denies headache PSYCHIATRIC: Denies recent changes in mood. PHYSICAL EXAM: GENERAL: Alert and oriented x 3. NAD EYES: EOMI. Anicteric. HENT: Moist mucous membranes. No scleral icterus. No cervical lymphadenopathy. LUNGS: Clear to auscultation bilaterally. CARDIOVASCULAR: Regular rate and rhythm. No murmur. No JVD. ABDOMEN: Soft, non-tender +bs EXTREMITIES: No edema. Non-tender. SKIN: No rashes or lesions. Warm. NEUROLOGIC: No focal neurological deficits. CN II-XII grossly intact PSYCHIATRIC: Cooperative. 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 1. Little interest or pleasure in doing things: not at all 2. Feeling down, depressed, or hopeless: not at all 3. Trouble falling or staying asleep, or sleeping too much: not at all 4. Feeling tired or having little energy: not at all 5. Poor appetite or overeating: not at all 6. Feeling bad about yourself - or that you are a failure or have let yourself or your family down: not at all 7. Trouble concentrating on things, such as reading the newspaper or watching television: not at all 8. Moving or speaking so slowly that other people could have noticed. Or the opposite - being so fidgety or restless that you have been moving around a lot more than usual: not at all 9. Thoughts that you would be better off or of hurting yourself in some way: not at all Total score: 0 Depression Screening Interpretation: Negative Depression Screening Done: Yes 94904 - PHQ-9 Billing: Yes Source: Developed by Drs. Aquilino Winter, mUm Restrepo, Jonathan Moore and colleagues, with an educational silke from [employer]. Thrive Questionnaire I am a: Patient What is your living situation today?: I have a steady place to live Within the past 12 months, did the food you bought not last and you didn't have the money to get more?: Never true Within the past 12 months, did you worry whether your food would run out before you got money to buy more?: Never true Do you have trouble paying for medicines?: No Do you have trouble getting transportation to medical appointments?: No Do you have trouble paying your heating and electricity bill?: No Do you have trouble taking care of your child, family member or friend?: No Do you have trouble with day-to-day activities such as bathing, preparing meals, shopping, managing finances, etc.?: No Are you currently unemployed and looking for a job?: No Are you interested in more education?: No Please select the resources that you would like help with: None Currently or been in a relationship where the following occur: No concerns reported THRIVE Score: 0 AUDIT C Alcohol Use Questionnaire (AUDIT-C) 1. How often do you have a drink containing alcohol?: Never Total Score: 0 PRADEEP-7 AMB Questionnaire PRADEEP-7 Feeling nervous, anxious, or on edge: 0 = Not at all Not being able to stop or control worryin = Not at all Worrying too much about different things: 0 = Not at all Trouble relaxin = Not at all Being so restless that it is hard to sit still: 0 = Not at all Becoming easily annoyed or irritable: 0 = Not at all Feeling afraid as if something awful might happen: 0 = Not at all Total PRADEEP-7 score (0-4 normal; 5-9 mild; 10-14 moderate; 15-21 severe): 0 Source: Developed by Drs. Aquilino Winter, Umm Restrepo, Jonathan Moore and colleagues, with an educational silke from [employer]. Physical exam (Primary Care) Vital Signs: Last Vital Signs Temp 98.7 F 11/27/24 15:36 Pulse 70 11/27/24 15:36 Resp 14 11/27/24 15:36 BP 108/62 11/27/24 15:36 Pulse Ox 98 11/27/24 15:36 Oxygen Delivery Method Room Air 11/27/24 15:36 BMI result Body Mass Index 22.4 Tobacco/Smoking Status: Tobacco use Status Tobacco use date assessed 11/27/24 11/27/24 15:47 Patient Tobacco Use Status Never used Tobacco 11/27/24 15:47 e-Cigarette/Vaping Use Never Used 11/27/24 15:47 PHQ-9: PHQ-9 Score PHQ-9: Total score 0 11/28/24 14:42 Depression Screening Interpretation: Negative Currently or been in a relationship where the following occur: No concerns reported Coding Level of Care Code Est Pt Level 4 (65409) Diagnoses Encounter to establish care Z76.89 Right ankle pain, unspecified chronicity M25.571 Chronicity: unspecified Low back pain, unspecified back pain laterality, unspecified chronicity, unspecified whether sciatica present M54.50 Back pain laterality: unspecified Chronicity: unspecified Sciatica presence: unspecified whether sciatica present Family history of BRCA gene positive Z84.81 Additional Codes PHQ-9 - 82853 - PHQ-9 Billing: Yes ([id number]) Assessment & Plan Assessment & Plan (1) Encounter to establish care: Code(s): Z76.89 - Persons encountering health services in other specified circumstances Category: Medical (2) Right ankle pain: Code(s): M25.571 - Pain in right ankle and joints of right foot Category: Medical Qualifiers: Chronicity: unspecified Qualified Code(s): M25.571 - Pain in right ankle and joints of right foot (3) Low back pain: Code(s): M54.50 - Low back pain, unspecified Category: Medical Qualifiers: Back pain laterality: unspecified Chronicity: unspecified Sciatica presence: unspecified whether sciatica present Qualified Code(s): M54.50 - Low back pain, unspecified (4) Family history of BRCA gene positive: Code(s): Z84.81 - Family history of carrier of genetic disease Category: Medical Plan 19 year old to establish care Past medical, surgical, social reviewed Family history of male breast cancer, BRCA+ -referral to genetics for consultation Right ankle pain-MR ordered, referral to ortho Orders: Orders Complete Blood Count Auto Diff 11/27/24 M25.571 - Pain in right ankle and joints of right foot, M54.50 - Low back pain, unspecified, Z13.0 - Encounter for screening for diseases of the blood and blood-forming organs and certain disorders involving the immune mechanism, Z13.228 - Encounter for screening for other metabolic disorders MR ankle RT wo con 11/27/24 M25.571 - Pain in right ankle and joints of right foot, M76.70 - Peroneal tendinitis, unspecified leg Comprehensive Met. Panel 11/27/24 M25.571 - Pain in right ankle and joints of right foot, M54.50 - Low back pain, unspecified, Z13.0 - Encounter for screening for diseases of the blood and blood-forming organs and certain disorders involving the immune mechanism, Z13.228 - Encounter for screening for other metabolic disorders Lipid Panel 11/27/24 M25.571 - Pain in right ankle and joints of right foot, M54.50 - Low back pain, unspecified, Z13.0 - Encounter for screening for diseases of the blood and blood-forming organs and certain disorders involving the immune mechanism, Z13.228 - Encounter for screening for other metabolic disorders Referrals Orthopedics Referral M25.571 - Pain in right ankle and joints of right foot, M54.50 - Low back pain, unspecified, Z76.89 - Persons encountering health services in other specified circumstances Genetics Referral Z80.3 - Family history of malignant neoplasm of breast, Z84.81 - Family history of carrier of genetic disease Medications: Discontinued acetaminophen Discontinued Reason: Patient no longer taking 1,000 mg (2 x 500 mg) PO .q8 PRN 30 caps 0RF fever or pain clindamycin HCl Discontinued Reason: Patient no longer taking 300 mg PO TID 10 days 30 caps 0RF prednisone Discontinued Reason: Patient no longer taking 50 mg PO DAILY 5 days 5 tabs 0RF ibuprofen Discontinued Reason: Patient no longer taking 600 mg PO Q8H PRN 30 tabs 0RF fever or pain
[2024-11-27 15:36] VITALS: BP 108/62; PULSE 70; RESP 14; TEMP 37.1; O2SAT 98; BMI 22.4
--- OUTSIDE RECORDS SUMMARY | 2024-11-27 16:22 | XMS_ITS | Encounter Summary ---
Author Organization [facility] Address [address] [place] [address] Phone Care Team Providers Care Pickling Tank Operator Name Role Phone Brant Pena MD Primary Care Provider [phone] Reason for Visit * Reason Onset Date Comments Discharge Follow-Up - ED 09/28/2024 [facility] - Right Ankle Sprain Encounter Details Date Type Department Care Team (Late st Contact Info) Description 09/29/2024 Telephone Pediatric And Adolescent Medicine - [address] [address] Brant Pena MD [address] [place], [place] [phone] Discharge Follow-Up - ED ([facility] - Right Ankle Sprain) Social History Tobacco Use Types Packs/Day Years [...] AM EDT documented as of this encounter Miscellaneous Notes * Telephone Encounter - Brant Pena MD - 10/03/2024 8:01 AM EDT Aware of current health issues and appreciate update. Adult provider needed Not seen in over a year and no f/u scheduled w [facility] Does he have an adult provider * Telephone Encounter - Sybil Luna LPN - 10/02/2024 5:15 PM EDT Patient was seen in the ED on 09/28/24. Presenting Symptoms: injury: right ankle, rolled ankle when playing pickle ball Diagnosis: Sprain Right Ankle Medications prescribed: none Imaging: Xray of right ankle: Normal F/U recommendations: RICE, ankle stirrup splint, crutches, ibuprofen/tylenol Clinical update: LMOVM to call the office Chart forwarded to: PCP for review. Original document is attached documented in this encounter Plan of Treatment Not on file documented as of this encounter Visit Diagnoses Not on filedocumented in this encounter Care Teams Pickling Tank Operator Relationship Specialty Start Date End Date Brant Pena MD [address] [place] [address] PCP - General 08/10/17 documented as of this encounter
--- OUTSIDE RECORDS SUMMARY | 2024-11-27 16:22 | XMS_ITS | Clinical Summary ---
Author Organization [facility] Address [address] [place] [address] Phone Care Team Providers Care Returned Case Inspector Name Role Phone Brant Pena MD Primary Care Provider [phone] Allergies Active Allergy Reactions Criticality Noted Date [...] release form as this is their last [facility]. Have them call within 1 [...] AM EDT): Suspect chronic muscle strain. Recommendations: Avoid activities which aggravate pain Will refer to physical therapy May use Ibuprofen or Aleve as needed for pain. Take with food May also try ice or heating pad for pain Call if any worsening pain, night wakening, radiation of pain down legs or numbness/tingling in legs or failure to improve after 4-6 weeks of physical therapy Encounters Date Type Department Care Team Description 09/29/2024 Telephone Pediatric And Adolescent Medicine - [address] [address] Brant Pena MD Discharge Follow-Up - ED ([facility] - Right Ankle Sprain) 09/29/2024 Telephone Pediatric And Adolescent Medicine - [address] [address] Brant Pena MD Discharge Follow-Up - ED ([facility] - Right Ankle X-ray result) 09/28/2024 9:46 PM EDT - 09/29/2024 1:02 AM EDT Emergency [facility] - Patient Ping from Last 3 Months Immunizations Immunization Administration Dates Next Due COVID-19 Pfizer, monovalent, 12+ years 1 DTaP 5 10/31/2008, 6,03/04/2005,12/30,2004 HPV Vaccine 9 [...] 73 07/06/2023 9:41 AM EDT Temperature 36.4 C (97.5 F) 07/06/2023 9:41 AM EDT Respiratory Rate 18 07/06/2023 9:41 AM EDT Oxygen Saturation 99% 07/06/2023 9:41 AM EDT Inhaled Oxygen Concentration - - Weight 85.4 kg (188 lb 3.2 oz) 07/06/2023 9:41 A M EDT Height 187 cm (6' 1.62 ) 07/06/2023 9:41 AM EDT Body Mass Index 24.41 07/06/2023 9:41 AM EDT Plan of Treatment Health Maintenance Due Date Last Done Comments COVID-19 Vaccine (3 - 2023-2 5 season) 2023 12/02/2020, 11/11/2020 Influenza Vaccines (#1) 2024 01/02/20 24, 07/01/2022, 01/26/2021, Additional history exists DTaP,Tdap,and Td Vaccines (7 - Td or [...] 017 Men B Vaccine Completed 07/06/2023, 07/01/[address] [place] [id number] [facility] H[facility] Care Teams Returned Case Inspector Relationship Specialty Start Date End Date Brant Pena MD [address] [place] [address] PCP - General 08/10/17
--- OUTSIDE RECORDS SUMMARY | 2024-11-27 16:22 | XMS_ITS | Encounter Summary ---
Author Organization [facility] Address [address] [place] [address] Phone Care Team Providers Care Director Talent Acquisition Name Role Phone Brant Pena MD Primary Care Provider [phone] Encounter Details Date Type Department Care Team (Late st Contact Info) Description 03/05/2013 Conversion Encounter Pediatric And Adolescent Medicine [facility] [address] [place] [address] [place] [address] Social History Tobacco Use Types Packs/Day Years [...] on filedocumented in this encounter Care Teams Director Talent Acquisition Relationship Specialty Start Date End Date Brant Pena MD [address] [place] [address] [place] [address] PCP - General 08/10/17 documented as of this encounter
--- OUTSIDE RECORDS SUMMARY | 2024-11-27 16:22 | XMS_ITS | Encounter Summary ---
Author Organization [facility] Address [address] [facility] [address] [place] [address] Phone Care Team Providers Care River Rat Name Role Phone Unavailable Primary Care Provider Unavailabl e Encounter Details Date Type Department Care Team (Latest Contact Info) Description 11/05/2019 Transcribe Orders Virtual Department [address] [place] [address] Brant Pena MD [address] [place] [address] Exposure to SARS-associated coronavirus (Primary Dx) Social History Tobacco Use Types Packs/Day Years Used Date Smoking Tobacco: Never Assessed Sex and Gender Information Value Date Recorded Sex Assigned at Not on file Legal Sex Male 2:43 PM EDT Gender Identity Not on file Sexual Orientation [...] It is not the complete legal health record.[facility]
--- OUTSIDE RECORDS SUMMARY | 2024-11-27 16:22 | XMS_ITS | Clinical Summary ---
Author Organization [facility] Address [address] [address] Phone Care Team Providers Care Door Hanger Name Role Phone Unavailable Primary Care Provider [...] It is not the complete legal health record.[facility]
--- OUTSIDE RECORDS SUMMARY | 2024-11-27 16:22 | XMS_ITS | Encounter Summary ---
Author Organization [facility] Address [address] [place] [address] Phone Care Team Providers Care Telephoto Installer Name Role Phone Brant Pena MD Primary Care Provider [phone] Reason for Visit * Reason Onset Date Comments Discharge Follow-Up - ED 09/28/2024 [facility] - Right Ankle X-ray result Encounter Details Date Type Department Care Team (Late st Contact Info) Description 09/29/2024 Telephone Pediatric And Adolescent Medicine - [address] [address] Brant Pena MD [address] [place], [place] [phone] Discharge Follow-Up - ED ([facility] - Right Ankle X-ray result) Social History Tobacco Use Types Packs/Day Years [...] encounter Miscellaneous Notes * Telephone Encounter - Sybil Luna LPN - 10/02/2024 5:11 PM EDT [facility] - Right Ankle X-ray result Negative result. documented in this encounter Plan of Treatment Not on file documented as of this encounter Visit Diagnoses Not on filedocumented in this encounter Care Teams Telephoto Installer Relationship Specialty Start Date End Date Brant Pena MD [address] [facility] [place] [address] PCP - General 08/10/17 documented as of this encounter
--- OUTSIDE RECORDS SUMMARY | 2024-11-27 16:22 | XMS_ITS ---
Author Name [facility] Organization Unknown Encounters Encounter Type Encounter Reason Primary Diagnosis Location Date Ambulatory [facility]. ([facility]) 05/02/2024
== END 2024-11-27 16:18 | disposition home or self-care (01) ==
LOC: HO.HMCFM 15:26
PROVIDERS: PCP Internal Medicine; Visit Provider Internal Medicine
DX: Z76.89 Persons encountering health services in other specified circumstances (principal); M25.571 Pain in right ankle and joints of right foot; M54.50 Low back pain, unspecified; Z84.81 Family history of carrier of genetic disease

== ENCOUNTER → 2024-11-27 15:25 | Outpatient (BNVA) | payer BC, SELFPAY | PROVIDERS: PCP Internal Medicine; Visit Provider Internal Medicine | DX: Z76.89 Persons encountering health services in other specified circumstances (principal); M25.571 Pain in right ankle and joints of right foot; M54.50 Low back pain, unspecified; Z84.81 Family history of carrier of genetic disease; Z13.31 Encounter for screening for depression | CPT/HCPCS: 96127 ==

== ENCOUNTER → 2024-12-07 19:46 | Outpatient (BNV) | payer BC, SELFPAY | PROVIDERS: PCP Internal Medicine; Visit Provider Radiology Diagnostic Radiology | DX: S93.491A Sprain of other ligament of right ankle, initial encounter (principal) | CPT/HCPCS: 73721 ==

== ENCOUNTER 2024-12-07 19:51 | Outpatient (REF) | payer BC, SELFPAY ==
--- NOTE | ~2024-12-07 | MR_ITS ---
CLINICAL HISTORY: M25.571 - Pain in right ankle and joints of right foot MR right ankle without gadolinium Comparison: None provided Findings: No acute fractures. No pathologic bone lesions. Small tibiotalar joint effusion. Anterior talofibular ligament is not seen. Posterior talofibular ligament is intact. Deltoid ligament is intact. No tears of the flexor, extensor, or peroneal tendons. Small amount of fluid surrounds the tibialis posterior, flexor digitorum longus, peroneus longus and brevis tendons. Achilles tendon is intact. Intact plantar fascia. IMPRESSION: 1. Anterior talofibular ligament tear. 2. Mild medial and lateral flexor tenosynovitis. 3. Small ankle joint effusion. This document has been electronically signed by: Tamera Cowan MD on 12/10/2024 13:42:58
--- OUTSIDE RECORDS SUMMARY | 2024-12-07 19:54 | XMS_ITS | Encounter Summary ---
Author Organization [facility] Address [address] [place] [address] Phone Care Team Providers Care Senior Statistician Name Role Phone Brant Pena MD Primary Care Provider [phone] Encounter Details Date Type Department Care Team (Late st Contact Info) Description 03/05/2013 Conversion Encounter Pediatric And Adolescent Medicine [facility] [address] [place] [address] [place] [address] Social History Tobacco Use Types Packs/Day Years [...] on filedocumented in this encounter Care Teams Senior Statistician Relationship Specialty Start Date End Date Brant Pena MD [address] [place] [address] [place] [address] PCP - General 08/10/17 documented as of this encounter
--- OUTSIDE RECORDS SUMMARY | 2024-12-07 19:54 | XMS_ITS | Encounter Summary ---
Author Organization [facility] Address [address] [place] [address] Phone Care Team Providers Care Sound Printer Name Role Phone Brant Pena MD Primary Care Provider [phone] Reason for Visit * Reason Onset Date Comments Discharge Follow-Up - ED 09/28/2024 [facility] - Right Ankle Sprain Encounter Details Date Type Department Care Team (Late st Contact Info) Description 09/29/2024 Telephone Pediatric And Adolescent Medicine - [address] [address] Brant Pena MD [address] [place], [place] [phone] Discharge Follow-Up - ED ([facility] - Right Ankle Sprain) Social History Tobacco [...] on filedocumented in this encounter Care Teams Sound Printer Relationship Specialty Start Date End Date Brant Pena MD [address] [place] [address] PCP - General 08/10/17 documented as of this encounter
--- OUTSIDE RECORDS SUMMARY | 2024-12-07 19:55 | XMS_ITS | Clinical Summary ---
Author Organization [facility] Address [address] [place] [address] Phone Care Team Providers Care Cardiovascular Or Nurse Name Role Phone Brant Pena MD Primary Care Provider Allergies Active Allergy Reactions Criticality Noted Date [...] release form as this is their last [facility]. Have them call within 1 [...] 09/29/2024 Telephone Pediatric And Adolescent Medicine - [address] [address] Brant Pena MD Discharge Follow-Up - ED ([facility] - Right Ankle Sprain) 09/29/2024 Telephone Pediatric And Adolescent Medicine - [address] [address] Brant Pena MD Discharge Follow-Up - ED ([facility] - Right Ankle X-ray result) 09/28/2024 9:46 PM EDT - 09/29/2024 1:02 AM EDT Emergency [facility] - Patient Ping from Last 3 Months [...] Health Maintenance Due Date Last Done Comments Influenza Vaccines (#1) 2024 01/02/20 24, 07/01/2022, 01/26/2021, Additional history exists COVID-19 Vaccine (3 - 2024-2 6 season) 2024 12/02/2020, 11/11/2020 DTaP,Tdap,and Td Vaccines (7 - [...] Completed 07/06/2023, 07/01/[address] [place] [id number] [facility] HMO Care Teams Cardiovascular Or Nurse Relationship Specialty Start Date End Date Brant Pena MD [address] [place] [address] PCP - General 08/10/17
--- OUTSIDE RECORDS SUMMARY | 2024-12-07 19:55 | XMS_ITS | Encounter Summary ---
Author Organization [facility] Address [address] [facility] [address] [place] [address] Phone Care Team Providers Care Industrial Methods Consultant Name Role Phone Unavailable Primary Care Provider Unavailabl e Encounter Details Date Type Department Care Team (Latest Contact Info) Description 11/05/2019 Transcribe Orders Virtual Department [address] [place] [address] Brant Pena MD [address] [place] [address] Exposure to SARS-associated coronavirus (Primary Dx) Social [...] It is not the complete legal health record.[facility]
--- OUTSIDE RECORDS SUMMARY | 2024-12-07 19:55 | XMS_ITS | Encounter Summary ---
Author Organization [facility] Address [address] [place] [address] Phone Care Team Providers Care Computer Programming Supervisor Name Role Phone Brant Pena MD Primary Care Provider [phone] Reason for Visit * Reason Onset Date Comments Discharge Follow-Up - ED 09/28/2024 [facility] - Right Ankle X-ray result Encounter Details Date Type Department Care Team (Late st Contact Info) Description 09/29/2024 Telephone Pediatric And Adolescent Medicine - [address] [address] Brant Pena MD [address] [place], [place] [phone] Discharge Follow-Up - ED ([facility] - Right Ankle X-ray result) Social [...] Luna LPN - 10/02/2024 5:11 PM EDT [facility] - Right Ankle X-ray result Negative result. documented in this encounter Plan of Treatment Not on file documented as of this encounter Visit Diagnoses Not on filedocumented in this encounter Care Teams Computer Programming Supervisor Relationship Specialty Start Date End Date Brant Pena MD [address] [facility] [place] [address] PCP - General 08/10/17 documented as of this encounter
--- OUTSIDE RECORDS SUMMARY | 2024-12-07 19:55 | XMS_ITS | Clinical Summary ---
Author Organization [facility] Address [address] [address] Phone Care Team Providers Care Surgery Specialist Name Role Phone Unavailable Primary Care Provider [...] It is not the complete legal health record.[facility]
== END 2024-12-07 19:52 | disposition home or self-care (01) ==
LOC: HO.MRI 19:51
PROVIDERS: PCP Internal Medicine; Visit Provider Internal Medicine
DX: M25.571 Pain in right ankle and joints of right foot (principal); M76.70 Peroneal tendinitis, unspecified leg
CPT/HCPCS: 73721